=== PATIENT | female | born 1965 | race African-American/Black ===

== ENCOUNTER 2020-04-11 03:48 | Emergency (ER) | payer OTHER ==
[~2020-04-11] VITALS: Ht 172.7 cm; Wt 70.5 kg
[~2020-04-11 03:48] MED LIST: QUET300T2 PO; TRAZ-184 PO
[2020-04-11 03:50] VITALS: BP 138/93
[2020-04-11] MEDS ORDERED: BUPIVACAINE HCL/PF 0.25% 10 ML VIAL INJ ONE (04:15)
[2020-04-11] MEDS ORDERED: PENICILLIN V POTASSIUM 500 MG TABLET PO ONE (04:15)
[2020-04-11] MEDS ORDERED: LIDOCAINE 1% 10 ML VIAL INJ ONE (04:15)
== END 2020-04-11 04:39 | disposition home or self-care (01) ==
LOC: EMS 03:48
DX: K04.7 Periapical abscess without sinus (principal); K08.89 Other specified disorders of teeth and supporting structures; F17.210 Nicotine dependence, cigarettes, uncomplicated
CPT/HCPCS: 64400; 99284; J3490 ×2